=== PATIENT | female | born 1955 | race Hispanic/Latino ===

== ENCOUNTER 2016-09-24 14:10 | Outpatient (CLI) | payer MEDICARE ==
--- NOTE | 2016-09-25 09:07 | XRay Report ---
METASTATIC BONE SURVEY History: Monoclonal gammopathy. Findings: Multiple radiographs of the axial and proximal patellar skeleton were obtained. There is normal bone mineralization. No lytic or blastic lesions are appreciated. Small bone island in the proximal left femur is noted. Impression: Unremarkable exam. No abnormal bony production or destruction is appreciated.
== END 2016-09-24 14:11 | disposition home or self-care (01) ==
LOC: SPVIMAG 14:10
PROVIDERS: ATTEND Internal Medicine Hematology & Oncology
DX: D47.2 Monoclonal gammopathy (principal)
CPT/HCPCS: 77074